=== PATIENT | female | born 1945 | race Caucasian/White ===

== ENCOUNTER → 2017-07-16 | Outpatient (CLI) | payer OTHER | END | disposition home or self-care (01) | LOC: GMAB 16:32 | PROVIDERS: ATTEND Family Medicine | DX: R35.0 Frequency of micturition (principal) ==

== ENCOUNTER → 2017-10-15 | Outpatient (CLI) | payer OTHER | END | disposition home or self-care (01) | LOC: GMAB 11:52 | PROVIDERS: ATTEND Family Medicine | DX: E03.9 Hypothyroidism, unspecified (principal); I10 Essential (primary) hypertension ==

== ENCOUNTER → 2018-11-11 | Outpatient (CLI) | payer OTHER | LOC: GMAE 10:40 | PROVIDERS: ATTEND Family Medicine | DX: E03.9 Hypothyroidism, unspecified (principal) ==

== ENCOUNTER → 2019-07-12 | Outpatient (CLI) | payer OTHER | LOC: YCFC.O 12:19 | PROVIDERS: ATTEND Family Medicine | DX: N39.0 Urinary tract infection, site not specified (principal); I10 Essential (primary) hypertension ==

== ENCOUNTER 2019-07-15 10:17 | Emergency (ER) | payer OTHER ==
[2019-07-15] MEDS ORDERED: ACETAMINOPHEN 500 MG TAB PO ONE (10:36)
--- NOTE | 2019-07-15 10:41 | ED.PDOC ---
History of Present Illness - General Chief Complaint: Problem Time Seen by Provider: 07/15/19 10:21 - History of Present Illness Initial Comments: Patient is a 74F w/ pmh of hypothyroidism and HTN who presents to the ED c/o a flank pain and subjective fevers. Reports symptoms began one week ago when she developed a headache, fevers and low back pain. She was seen by her PCP and dx w/ a UTI and started on ciprofloxacin. Reports being compliant with her medications but continues to have generalize malaise. Reports she does not usually get headaches. Denies a BARNES currently, but primarily feels fatigued. Denies any N/V/D, dysuria or increased frequency. Back pain is primarily her b/l flanks, radiates anteriorly. No aggravating or alleviating factors. Allergies/Adverse Reactions: Allergies Lisinopril Adverse Reaction (Verified 07/15/19 10:45) Cough Home Medications: Ambulatory Orders Levothyroxine Sodium [Synthroid] 0.1 mg PO DAILY 07/15/19 Losartan Potassium & Hydrochlo [Losartan Potassium/Hydroc 100-25 mg] 1 tab PO DAILY 07/15/19 Review of Systems - Review of Systems Constitutional: States: chills, fever EENTM: States: no symptoms reported Respiratory: States: no symptoms reported. Denies: cough, short of breath Cardiology: States: no symptoms reported Gastrointestinal/Abdominal: States: no symptoms reported Genitourinary: Denies: dysuria, frequency Musculoskeletal: States: back pain, muscle stiffness Skin: Denies: lesions, rash Neurological: States: headache. Denies: weakness Endocrine: States: increased thirst. Denies: increased urine Hematologic/Lymphatic: States: no symptoms reported All other Systems: Reviewed and Negative Family Medical History - Family History Mother Living Status: Cause of : CHF Hx Family Congestive Heart Failure: Yes Hx Family Hypertension: Yes Physical Exam - Physical Exam General Appearance: Comfortable Eye Exam: bilateral normal Ears, Nose, Throat: normal ENT inspection, normal pharynx Neck: non-tender, supple Respiratory: chest non-tender, lungs clear Cardiovascular/Chest: normal peripheral pulses, regular rate, rhythm Peripheral Pulses: radial,right: 2+, radial,left: 2+ Gastrointestinal/Abdominal: normal bowel sounds, non tender Rectal Exam: deferred Back Exam: CVA tenderness (R), CVA tenderness (L) Extremity: non-tender, no pedal edema 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 Tabor due to on going malaise, fevers and back pain. Was treated for UTI with cipro, cultures were unfortunately contaminated. Spoke with Dr. Tabor who recommended septic w/u including CT abd/pelvis, CXR, repeat labs. Will also add CT head given her atypical headache. 07/15/19 12:26 CT head IMPRESSION: 1. No hemorrhage, no mass effect, no midline shift. Focal low- density right frontal lobe subcortical white matter without mass effect. 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 Bilateral symmetric periventricular white matter low- density. These are most likely chronic age-related or cerebral microvascular related ischemia. 2. CT scans are insensitive for detecting small CVAs in the first 24 hours after onset. Evaluation of the brain stem is also limited. If symptoms persist, consider NON-EMERGENT MRI scan of the brain with diffusion imaging. 07/15/19 12:32 CT abd/pelvis IMPRESSION: 1. Minimal hepatomegaly but no focal lesions or abnormal density. No ascites. 2. Kidneys ureters and urinary bladder unremarkable with no radiodense stones, signs of obstruction or inflammation. 3. Bowel is negative. Except for mild diverticulosis scattered throughout the colon. No free air or free fluid in the abdomen or pelvis. No inflammatory changes. Electronically signed by: Bhupinder Thompson MD 07/15/2019 12:26 PM CDT 07/15/19 12:40 Spoke with patient's PCP, Dr. Tabor, who recommends keeping the patient on ciprofloxacin and that he will f/u with her. Will D/c. Departure - Departure Clinical Impression: Acute UTI Disposition: Discharge to Home or Self Care Departure Forms: ED Discharge - Pt. Copy, Patient Portal Self Enrollment Instructions: DI for Urinary Tract Infection (UTI) Referrals: Willy Tabor MD [Primary Care Provider] - 1-2 Weeks Home Medications: Ambulatory Orders Levothyroxine Sodium [Synthroid] 0.1 mg PO DAILY 07/15/19 Losartan Potassium & Hydrochlo [Losartan Potassium/Hydroc 100-25 mg] 1 tab PO DAILY 07/15/19
[2019-07-15] MEDS ORDERED: SODIUM CHLORIDE 0.9% 1000ML 1,000 ML IVS ONE (10:51)
[2019-07-15] MEDS ORDERED: POTASSIUM CHLORIDE 20 MEQ TAB PO ONE (11:20)
[2019-07-15] MEDS ORDERED: SODIUM CHLORIDE 0.9% IVPB ONE (11:24)
[2019-07-15] MEDS ORDERED: POTASSIUM CHLORIDE IVPB ONE (11:24)
[2019-07-15] MEDS ORDERED: SODIUM CHLORIDE 0.9% 100ML 100 ML IVPB ONE (11:30)
[2019-07-15] MEDS ORDERED: POTASSIUM CHLORIDE 10mEq 5ML VIAL ONE (11:30)
--- NOTE | 2019-07-15 11:57 | RAD ---
EXAM DESCRIPTION: Chest,2 Views: CR/ CLINICAL HISTORY: 74 years Female fever COMPARISON: CT scan of the head and abdomen and pelvis on this visit. TECHNIQUE: Two views. PA and Lateral. FINDINGS: Lungs: Moderate expansion with no acute infiltrate. Pleural spaces: No effusion or pneumothorax bilaterally. Heart: Mildly enlarged with hypertension configuration. Pulmonary Vascularity: Not increased. Mediastinum: Not widened. Aorta: Unremarkable. Bony Thorax/Spine: No acute bony thoracic abnormalities. Thoracic disc spaces. IMPRESSION: No radiographic evidence of acute cardiopulmonary disease. Mild cardiac enlargement but Shape of heart most likely from hypertension. Electronically signed by: Bhupinder Thompson MD 07/15/2019 11:55 AM CDT
--- NOTE | 2019-07-15 12:11 | CT ---
EXAM DESCRIPTION: Head: Computed Tomography. CLINICAL HISTORY: Atypical Migraine COMPARISON: Chest x-ray and CT scan of abdomen and pelvis on this visit. TECHNIQUE: Non-helical axial scans through the skull and brain, at 2.5 x 20 mm intervals, non-contrast. Coronal and sagittal 2.0 mm reconstructions. Total Exam DLP: 859.97 mGy-cm. This exam was performed according to our departmental dose-optimization program which includes automated exposure control, adjustment of the mA and/or kV according to patient size and/or use of iterative reconstruction technique; to reduce radiation dose to as low as reasonably achievable (ALARA). FINDINGS: No hemorrhage, no mass-effect, and no midline shift. Low-density in the subcortical white matter of the right frontal lobe (axial series 5, image 34-35) as well as minimal low-density in the periventricular white matter of the frontal and parietal lobes symmetric bilaterally. No abnormal radiodense material in the brain parenchyma. Vascular calcifications anterior; physiologic calcifications in the pineal gland and choroid plexus. No effacement or displacement of the ventricles, CSF spaces, or subdural spaces. No extra axial fluid collection or hemorrhage. No gross abnormalities of the bony calvarium. Included paranasal sinuses and mastoid air cells are well - aerated. IMPRESSION: 1. No hemorrhage, no mass effect, no midline shift. Focal low-density right frontal lobe subcortical white matter without mass effect. 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 Bilateral symmetric periventricular white matter low-density. These are most likely chronic age-related or cerebral microvascular related ischemia. 2. CT scans are insensitive for detecting small CVAs in the first 24 hours after onset. Evaluation of the brain stem is also limited. If symptoms persist, consider NON-EMERGENT MRI scan of the brain with diffusion imaging. Electronically signed by: Bhupinder Thompson MD 07/15/2019 12:09 PM CDT
--- NOTE | 2019-07-15 12:28 | CT ---
EXAM DESCRIPTION: Abdomen/Pelvis w/Contrast: Computed Tomography. CLINICAL HISTORY: 74 years Female flank pain, fever COMPARISON: None. TECHNIQUE: Spiral-axial scans at 5 x 5 mm intervals through the abdomen and pelvis, after 50 mL Optiray 320 nonionic IV contrast without oral contrast. (Contrast dose was reduced due to patient renal function). Coronal and sagittal 2.0 mm mm reconstructions. No delayed scans. No adverse reactions. Total Exam DLP: 50 mGy-cm. This exam was performed according to our departmental dose-optimization program which includes automated exposure control, adjustment of the mA and/or kV according to patient size and/or use of iterative reconstruction technique; to reduce radiation dose to as low as reasonably achievable (ALARA). Technically limited study because patient could not raise arms overhead. FINDINGS: Lung bases and pleura: Bibasilar posterior dependent atelectasis. Liver, Stomach, Spleen, Adrenal Glands: Artifact from bone in the bilateral upper extremities next to the abdomen. 19 cm long axis of the right lobe of the liver. No focal lesions. Possible small hiatal hernia. Otherwise stomach and other solid organs are negative. Pancreas, Gallbladder, Ducts: Gallbladder visualized. Prominent common bile duct. Pancreas negative. Kidneys and Ureters: Unremarkable. Mesentery: Negative. Aorta: Minimal atherosclerotic changes. Small periaortic and pericaval lymph nodes. Small Bowel: Minimal fluid and gas with no distended segments. Terminal Ileum/Cecum: Normal caliber. Appendix not seen. No inflammatory changes. Colon: Minimal redundancy of the sigmoid with diverticula. No complications. Minimal fecal material proximally. No air-fluid levels. Pelvic Organs: No free fluid. Urinary bladder nondistended. Vaginal cuff unremarkable. Spine and Bony Pelvis: L5-S1 moderate spondylosis with canal and bilateral foraminal narrowing significant on the left. Minimal spondylosis at T11-T12 and in the included thoracic disc spaces. Left lumbar levoscoliosis. Minimal arthrosis bilateral hip joints. Abdominal Wall/Back Soft Tissues: Minimal diastases at the umbilicus not containing bowel. Bilateral small fatty inguinal hernias not containing bowel. IMPRESSION: 1. Minimal hepatomegaly but no focal lesions or abnormal density. No ascites. 2. Kidneys ureters and urinary bladder unremarkable with no radiodense stones, signs of obstruction or inflammation. 3. Bowel is negative. Except for mild diverticulosis scattered throughout the colon. No free air or free fluid in the abdomen or pelvis. No inflammatory changes. Electronically signed by: Bhupinder Thompson MD 07/15/2019 12:26 PM CDT
[2019-07-15 13:55] VITALS: BP 147/68; TEMP 98.2; O2SAT 97
== END 2019-07-15 13:57 | disposition home or self-care (01) ==
LOC: ER 10:17
DX: N39.0 Urinary tract infection, site not specified (principal); E87.6 Hypokalemia; I10 Essential (primary) hypertension; E03.9 Hypothyroidism, unspecified; Z88.8 Allergy status to other drugs, medicaments and biological substances; Z79.899 Other long term (current) drug therapy
CPT/HCPCS: 70450; 71046; 74177; 80053; 81001; 85025; J3480; J7030; J7050

== ENCOUNTER → 2019-08-09 | Outpatient (CLI) | payer OTHER ==
--- NOTE | 2019-08-09 15:23 | RAD ---
EXAM DESCRIPTION: Knee,Left Complete CLINICAL HISTORY: 74 years Female, KNEE PN TECHNIQUE: 3 views of the left knee were performed. COMPARISON: None available. FINDINGS: The visualized bones appear well mineralized. No acute fracture or dislocation. 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 Small joint effusion. 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 Small joint effusion. Electronically signed by: Natalie Sanchez MD 08/09/2019 3:21 PM CDT
== END ==
LOC: YCFC.O 11:56
PROVIDERS: ATTEND Family Medicine
DX: M17.12 Unilateral primary osteoarthritis, left knee (principal); N39.0 Urinary tract infection, site not specified

== ENCOUNTER → 2019-08-29 | Outpatient (CLI) | payer OTHER ==
--- NOTE | 2019-08-29 12:55 | RAD ---
EXAM DESCRIPTION: Pelvis CLINICAL HISTORY: 74 years Female, PAIN IN LEFT HIP COMPARISON: None. TECHNIQUE: AP radiograph of the pelvis was performed. FINDINGS: The pelvic ring appears grossly intact on this single AP radiograph. No acute fracture or dislocation. Bilateral sacroiliac joints appear normal. Mild bilateral hip osteoarthritis. The visualized lumbo-sacral spine demonstrates mild degenerative changes. IMPRESSION: Single AP radiograph of the pelvis demonstrates grossly intact pelvic ring. Mild bilateral hip osteoarthritis. Electronically signed by: Natalie Sanchez MD 08/29/2019 12:53 PM CDT
== END ==
LOC: RAD 10:00
PROVIDERS: ATTEND Orthopaedic Surgery
DX: M16.0 Bilateral primary osteoarthritis of hip (principal)

== ENCOUNTER → 2019-11-15 | Outpatient (CLI) | payer OTHER | LOC: LAB.O 08:31 | PROVIDERS: ATTEND Family Medicine | DX: I10 Essential (primary) hypertension (principal); E55.9 Vitamin D deficiency, unspecified; E03.9 Hypothyroidism, unspecified; Z13.220 Encounter for screening for lipoid disorders ==

== ENCOUNTER 2020-03-16 09:02 | Observation (INO) | payer OTHER ==
--- NOTE | 2020-03-16 09:12 | ED.PDOC ---
History of Present Illness - General Time Seen by Provider: 03/16/20 09:08 Additional Information: This is a 75-year-old female, with history of hypertension, thyroid disease patient presenting to the ER because of left arm numbness. Patient stated that she woke up in the morning and felt like there was some numbness on the left upper extremity lasted about an hour then it got better on its own. Patient mentioned that yesterday she did not feel well and she did have some chest tightness and palpitations, no chest pain today. Patient denies any fever chills nausea vomiting denies any coughing. Patient lives by herself No blood thinners Patient also admits history of frequent UTIs - History of Present Illness Timing/Duration: other - Woke up with the symptoms Improving Factors: nothing Worsening Factors: nothing Associated Symptoms: chest pain Allergies/Adverse Reactions: Allergies Lisinopril Adverse Reaction (Verified 07/15/19 10:45) Cough Home Medications: Ambulatory Orders Levothyroxine Sodium [Synthroid] 0.1 mg PO DAILY 07/15/19 Losartan Potassium & Hydrochlo [Losartan Potassium/Hydroc 100-25 mg] 1 tab PO DAILY 07/15/19 Meloxicam PO DAILY 03/16/20 Review of Systems - Review of Systems Constitutional: States: no symptoms reported EENTM: States: no symptoms reported Respiratory: States: no symptoms reported Cardiology: States: chest pain Gastrointestinal/Abdominal: States: no symptoms reported Genitourinary: States: no symptoms reported Musculoskeletal: States: no symptoms reported Skin: States: no symptoms reported Endocrine: States: no symptoms reported Hematologic/Lymphatic: States: no symptoms reported Past Medical History (General) - Patient Medical History Hx Stroke: No Hx Congestive Heart Failure: No Hx Hypertension: Yes Hx Thyroid Disease: Yes Hx Diabetes: No Hx MRSA: No - Vaccination History Hx Influenza Vaccination: Yes - 2018 - Social History Hx Tobacco Use: No Hx Alcohol Use: No Hx Substance Use: No Family Medical History - Family History Mother Living Status: Cause of : CHF Hx Family Congestive Heart Failure: Yes Hx Family Hypertension: Yes Physical Exam - Physical Exam General Appearance: Alert, Well Developed, Well Groomed Eye Exam: bilateral normal Ears, Nose, Throat: hearing grossly normal, normal ENT inspection, normal pharynx Neck: non-tender, full range of motion, supple, normal inspection Respiratory: chest non-tender, lungs clear, normal breath sounds, no respiratory distress, no accessory muscle use Cardiovascular/Chest: normal peripheral pulses, regular rate, rhythm, no edema, no gallop, no JVD Peripheral Pulses: radial,right: 2+, radial,left: 2+ Gastrointestinal/Abdominal: normal bowel sounds, non tender, soft, no organomegaly, no pulsatile mass Back Exam: normal inspection, no CVA tenderness, no vertebral tenderness 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 This exam was performed according to our departmental dose- optimization program, which includes automated exposure control, adjustment of the mA and/or kV according to patient size and/or use of iterative reconstruction technique. FINDINGS: The midline structures are not displaced. Sulci are age-appropriate. There are areas of decreased attenuation in the periventricular white matter and the white matter of the centrum semiovale. There is no evidence of mass, mass-effect, hydrocephalus, or acute intracranial hemorrhage. No abnormal extra axial fluid collection is seen. Bone windows show no evidence of depressed skull fracture. Moderate calcifications of the intracranial carotid arteries. The visualized paranasal sinuses are unremarkable. IMPRESSION: 1. Age-appropriate atrophy with evidence of old small vessel ischemic type changes seen. 2. No acute abnormality is seen on noncontrast CT of the head. 75-year-old female, presents to the ER with left arm numbness, she woke up with the symptoms the symptoms lasted about an hour, then she also mentioned that yesterday she did have some palpitations, patient's EKG did not show any acute ischemic changes normal troponin chest x-ray did not show any bilateral pneumonia, head CT was read by radiologist without any intracranial abnormalities. Patient is completely symptomatic has no focal neurological deficits given the fact that she does not have any symptoms at the moment and and she woke up with the numbness that went away on its own, this patient would not be a candidate for TPA will be consulted with the hospitalist for admission for chest pain and TIA - EKG/XRAY/CT Comments: Normal sinus rhythm heart rate of 61, first-degree AV block no acute ischem Departure - Departure Clinical Impression: TIA (transient ischemic attack) Disposition: Discharge to Home or Self Care Referrals: Willy Tabor MD [Primary Care Provider] - 1-2 Weeks Home Medications: Ambulatory Orders Levothyroxine Sodium [Synthroid] 0.1 mg PO DAILY 07/15/19 Losartan Potassium & Hydrochlo [Losartan Potassium/Hydroc 100-25 mg] 1 tab PO DAILY 07/15/19 Meloxicam PO DAILY 03/16/20 Decision To Admit - Decistion To Admit Decision to Admit Reason: Admit from ER Decision to Admit Date: 03/16/20 Decision to Admit Time: 10:04
--- NOTE | 2020-03-16 09:54 | CT ---
EXAM DESCRIPTION: Head CLINICAL HISTORY: numbness COMPARISON: July 15, 2019 TECHNIQUE: Noncontrast transaxial CT images of the head are obtained from base to vertex. This exam was performed according to our departmental dose-optimization program, which includes automated exposure control, adjustment of the mA and/or kV according to patient size and/or use of iterative reconstruction technique. FINDINGS: The midline structures are not displaced. Sulci are age-appropriate. There are areas of decreased attenuation in the periventricular white matter and the white matter of the centrum semiovale. There is no evidence of mass, mass-effect, hydrocephalus, or acute intracranial hemorrhage. No abnormal extra axial fluid collection is seen. Bone windows show no evidence of depressed skull fracture. Moderate calcifications of the intracranial carotid arteries. The visualized paranasal sinuses are unremarkable. IMPRESSION: 1. Age-appropriate atrophy with evidence of old small vessel ischemic type changes seen. 2. No acute abnormality is seen on noncontrast CT of the head. Electronically signed by: Sharif Li MD 03/16/2020 9:52 AM CDT
--- NOTE | 2020-03-16 10:04 | RAD ---
EXAM DESCRIPTION: Chest,1 View CLINICAL HISTORY: chest pain COMPARISON: July 15, 2019 IMPRESSION: Single AP portable upright view of the chest shows cardiac silhouette and pulmonary vasculature to be within normal limits. Lungs are normally aerated and clear. No obvious pleural effusion or pneumothorax is seen. Electronically signed by: Sharif Li MD 03/16/2020 10:02 AM CDT
--- NOTE | 2020-03-16 10:49 | HP ---
SUPERVISING PHYSICIAN: Josue Krishnamurthy MD CHIEF COMPLAINT: Numbness to right fingers. HISTORY OF PRESENT ILLNESS: Ms. Worley is 75 year-old female patient with a history of hypertension and thyroid disease who presented to the Emergency Room with left arm numbness. She endorses that she woke up this morning, seemed like there had been something in her left arm like she had gone asleep in the wrong position but it failed to improve once she got up and moved around. It did resolve after about an hour or hour and a half. She also endorses she felt like she may have been having some chest pain or chest tightness yesterday but none today. She is denying any other complaints. No chills, fever, vomiting, diarrhea or coughing. MRI, carotid Doppler, echocardiogram, were pending. Her CT without contrast failed to show any evidence of acute abnormalities indicating a possible stroke. Given her symptomatology, an EKG was done and showed normal sinus rhythm. Troponin was less than 0.02. Her labs were essentially unremarkable except for a slightly decreased potassium at 3.0 and magnesium at 1.7. She did have a slight left shift on initial CBC but white count was 9,000. Urinalysis showed on microscopic, 3 to 5 WBC with rare bacteria. She does endorse that she has had multiple urinary tract infections over the last several months. Given the question of a TIA and further workup required, the patient is going to be placed in observation for cardiac telemetry, neurological monitoring and further assessment and workup. She was placed in observation in stable condition. PAST MEDICAL HISTORY: 1. Hypertension. 2. Hypothyroidism. PAST SURGICAL HISTORY: 1. Stapedectomy in 1985. 2. Hysterectomy in 1983. 3. Breast biopsy in 1971. CURRENT MEDICATIONS: 1. Meloxicam. 2. Hydrochlorothiazide. 3. Losartan. 4. Synthroid. ALLERGIES: Lisinopril. FAMILY HISTORY: No major medical history. Father at age 89 from advanced age. Mother at age 85 from advanced age. 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 She lives by herself. She has no history of drinking, smoking tobacco or using illicit drugs. REVIEW OF SYSTEMS: CONSTITUTIONAL: Denies any fevers, chills, weakness, general malaise. HEENT: Denies headaches, visual changes, sore throat, nasal congestion. Does have chronic hearing loss. CARDIOVASCULAR: Denies actual chest pain, had some chest tightness yesterday. Denies syncopal episode or palpitations. RESPIRATORY: Denies coughing, wheezing, shortness of breath. GASTROINTESTINAL: Denies nausea or vomiting, diarrhea, constipation or abdominal pain. GENITOURINARY: History of chronic urinary tract infections. She notes she had some mild dysuria but no hematuria or polyuria. MUSCULOSKELETAL: Denies oint swelling or arthralgias. SKIN: Denies rashes, moles, rashes or unexplained changes. NEUROLOGICAL: As noted in history of present illness. Some numbness to left hand involving entire fingers described as more tingling. No reported weakness. No syncopal episodes, no seizures, no ataxia or other neurological deficits. HEMATOLOGIC: Denies easy bruising or unexplained bleeding or transfusion reactions. PHYSICAL EXAMINATION: VITAL SIGNS: Initially in the Emergency Room, temperature of 97.6, pulse 52, blood pressure 172/79, respirations 16, oxygen saturation 99% on room air. Admission weight 84.9 kg. GENERAL: The patient was resting comfortably, did not appear to be in any acute distress. She was well-nourished, well-hydrated. HEENT: Tympanic membranes clear bilaterally. Oropharynx pink, moist without lesions. NECK: Supple, non-tender, full range of motion, no jugular venous distention. CHEST: Lung sounds are clear to auscultation without rhonchi, rales, or wheezes. CARDIOVASCULAR: Regular rate and rhythm without appreciable murmurs, rubs, or gallops. ABDOMEN: Soft, non-tender, positive bowel sounds. BACK: No CVA or vertebral tenderness. EXTREMITIES: Without cyanosis, clubbing, or edema. NEUROLOGIC: Cranial nerves II through XII grossly intact. Upper and lower extremity bilateral strength with no motor drift. [id number] bilateral is normal. Facial features were symmetrical. Extraocular movements within normal limits. No nystagmus and she was alert and oriented x 3. Skin was warm, pink and dry. LABORATORY: White count 9,000, hemoglobin 12.5, hematocrit 37.3, platelet count 286,000. Differential does show a slight left shift. Chemistries showed a mild potassium at 3.0, other electrolytes within normal limits. BUN 26, creatinine 1.08, calcium 9.7, magnesium 1.7. Liver functions within normal limits. TSH normal at 0.92, troponin less than 0.02. Urinalysis showed a small leukoesterase, WBCs 3 to 5, RBCs, epithelials 5 to 10 and rare bacteria. MICROBIOLOGY: Urine culture pending. RADIOLOGY: Chest x-ray without any abnormal findings per radiology interpretation. CT of the head without contrast, no acute findings. Brain MRI, carotid MRI and echocardiogram were pending. ASSESSMENT: 1. Possible TIA with reported left hand numbness that resolved prior to being seen in the Emergency Room with no history of previous stroke, no placed on aspirin or anti-lipid medications. 2. Hypertension, showing to be stable. 3. Hypothyroidism on supplementation with normal TSH. 4. Urinary tract infection with history of chronic urinary tract infections treated within the last 2 months, on Cipro with cultures pending. PLAN: The patient is going to be placed in observation for continued workup for possible TIA. MRI, carotid and echocardiogram ordered bu pending. She will be on neurological checks as per protocol. I will start her on aspirin and Lipitor as well as check a lipid panel in the morning. I started her on Rocephin and cultures pending, for the empiric coverage of the urinary tract infection. Will also have her on DVT prophylaxis with Lovenox. I anticipate her length of stay to be one to two days. More likely she will discharge tomorrow should she show to be clinically stable. Until then we will continue to monitor and treat as needed. Once discharged, she will certainly need followup with Dr. Tabor for further cardiology workup and neurological management. #[id number] [facility]
--- NOTE | 2020-03-16 12:00 | US ---
EXAM DESCRIPTION: Carotid Duplex CLINICAL HISTORY: 75 years Female, Possible TIA COMPARISON: None. TECHNIQUE: Carotid Doppler ultrasound was performed bilaterally. FINDINGS: Mild atherosclerotic disease is noted in the bilateral carotid bulb and internal carotid artery. Peak systolic velocities are 53.1 cm/s, 69.6 cm/s and 77.6 cm/s in the proximal, mid and distal portions of the right internal carotid artery. Peak systolic velocities are 46 cm/s, 57.4 cm/s and 70 cm/s in the proximal, mid and distal portions of the left internal carotid artery. ICA to CCA ratio is 1.1 on the right and 0.8 on the left. Antegrade flow is noted in the bilateral vertebral arteries. IMPRESSION: No hemodynamically significant stenosis is noted in the bilateral carotid arteries. Electronically signed by: Natalie Sanchez MD 03/16/2020 11:59 AM CDT
--- NOTE | 2020-03-16 12:29 | MRI ---
EXAM DESCRIPTION: Brain w/oContrast CLINICAL HISTORY: Possible TIA COMPARISON: CT head earlier same day March 16, 2020 TECHNIQUE: Non contrast MRI of the brain is performed according to our usual protocol including multiplanar multi sequence technique. FINDINGS: Sagittal T1 images show intact corpus callosum. Normal pituitary gland with normal T1 appearance of the jamie and medulla and upper cervical cord. Normal signal intensity within the clivus and calvarium. Axial T2 fat sat images reveal preservation of intracranial vascular flow voids. Normal griffin matter T2 signal intensity. Scattered white matter hyperintensities. Normal ventricles with normal gyral and sulcal fold pattern. The globes appear intact and symmetrical. No abnormal fluid signal in the paranasal sinuses, tympanic cavities or mastoid air cells. Axial flair images show multiple small foci of increased signal intensity in the subcortical and central white matter both cerebral hemispheres consistent with chronic microvascular ischemic changes from aging, diabetes or hypertension. Diffusion weighted images are negative for focal intense increased signal intensity in the brain parenchyma to suggest restricted diffusion. ADC mapping is negative. Axial T1 images show normal griffin-white matter differentiation. No high signal intensity hemorrhagic lesion of the brain parenchyma. No subdural hematoma. Coronal susceptibility weighted images are negative for focal signal loss to suggest abnormal brain parenchymal calcification or hemosiderin deposition. IMPRESSION: Chronic microvascular ischemic changes in the cerebral white matter. No acute intracranial pathologic process. Electronically signed by: Moe Steven MD 03/16/2020 12:27 PM CDT
[2020-03-16] MEDS ORDERED: SODIUM CHLORIDE 0.9% (FLUSH) 10 ML SYG IV PRN (12:37)
[2020-03-16] MEDS ORDERED: IV SET AND CAP CHANGE INJ INJ SCH (13:00)
[2020-03-16] MEDS ORDERED: cefTRIAXone SODIUM 1 GM VIAL ONE (14:23)
[2020-03-16] MEDS ORDERED: SODIUM CHL 0.9% 50ML MIN-BAG+ 50 ML IVPB ONE (14:23)
[2020-03-16] MEDS: ASPIRIN (CHEWABLE) 81 MG TAB PO SCH (14:25)
[2020-03-16] MEDS ORDERED: cefTRIAXone SODIUM 1 GM in SODIUM CHL 0.9% 50ML MIN-BAG+ 50 ML IVPB SCH (14:30)
[2020-03-16] MEDS ORDERED: POTASSIUM CHLORIDE 20 MEQ TAB PO ONE (15:22)
[2020-03-16] MEDS ORDERED: MAGNESIUM SULFATE PREMIX 2GM 2 GM in PREMIX BAG 1 BAG IVPB ONE (15:23)
[2020-03-16] MEDS ORDERED: MAGNESIUM SULFATE PREMIX 2GM 50 ML IVPB ONE (15:51)
[2020-03-17] MEDS: ASPIRIN (CHEWABLE) 81 MG TAB PO SCH (09:27)
[2020-03-17 10:26] VITALS: BP 144/77; TEMP 97.9
[2020-03-17 12:08] VITALS: O2SAT 96
--- NOTE | 2020-03-19 11:00 | DS ---
SUPERVISING PHYSICIAN: Edith Krishnamurthy MD ADMISSION DIAGNOSIS: 1. Possible TIA with reported left hand numbness that resolved prior to being seen in the Emergency Room with no history of previous stroke, now placed on aspirin or anti-lipid medications. 2. Hypertension, showing to be stable. 3. Hypothyroidism on supplementation with normal TSH. 4. Urinary tract infection with history of chronic urinary tract infections treated within the last 2 months, on Cipro with cultures pending. DISCHARGE DIAGNOSIS: 1. Possible cerebrovascular accident with the patient having no previous history of strokes, not currently on aspirin or statin at time of event. Discharged with both aspirin and statin and no recurrence of any symptoms. 2. Urinary tract infection with cultures pending. The patient was discharged on Cipro. 3. Hypertension, stable. 4. Hypothyroidism on supplementation with normal TSH. REASON FOR HOSPITALIZATION: Ms. Worley is 75 year-old female patient with a history of hypertension and thyroid disease who presented to the Emergency Room with left arm numbness. She endorses that she woke up this morning, seemed like there had been something in her left arm like she had gone asleep in the wrong position but it failed to improve once she got up and moved around. It did resolve after about an hour or hour and a half. She also endorses she felt like she may have been having some chest pain or chest tightness yesterday but none today. She is denying any other complaints. No chills, fever, vomiting, diarrhea or coughing. MRI, carotid Doppler, echocardiogram, were pending. Her CT without contrast failed to show any evidence of acute abnormalities indicating a possible stroke. Given her symptomatology, an EKG was done and showed normal sinus rhythm. Troponin was less than 0.02. Her labs were essentially unremarkable except for a slightly decreased potassium at 3.0 and magnesium at 1.7. She did have a slight left shift on initial CBC but white count was 9,000. Urinalysis showed on microscopic, 3 to 5 WBC with rare bacteria. She does endorse that she has had multiple urinary tract infections over the last several months. Given the question of a TIA and further workup required, the patient is going to be placed in observation for cardiac telemetry, neurological monitoring and further assessment and workup. She was placed in observation in stable condition. LABORATORY: CBC showed white count 9,000, hemoglobin 12.5, hematocrit 37.3, platelet count 286,000. Differential did show a slight left shift. Chemistries showed a mildly low potassium of 3.0, BUN 26, normal creatinine of 1. Magnesium low at 2.7. Liver functions all within normal limits. Troponin less than 0.02. Lipid panel within normal limits. TSH 0.92. Urinalysis did show mild leukocyte esterase, 0 RBCs, 3 to 5 WBCs, 5 to 10 epithelial, rare bacteria. MICROBIOLOGY: Final urine culture result showed urogenital brandy present, not common pathogens. RADIOLOGY: 12-lead EKG showed a sinus rhythm with no ST or T-wave changes. It did show a first degree AV block. She had a chest x-ray with no acute findings. CT of the head showed no acute findings per radiologic interpretation, just age-appropriate atrophy with some evidence of old small vessel ischemic type changes seen. MRI of the brain per radiologic interpretation showed chronic microvascular ischemic changes in the cerebral white matter, no acute intracranial pathologic process. Carotid artery studies showed no significant stenosis per radiologic interpretation. Echocardiogram showed normal ejection fraction with no mention of any ventricular thromboses or other abnormalities. Please see that report for details with final report pending at discharge. HOSPITAL COURSE: Ms. Escalante was admitted for further workup with questionable transient ischemic attack. Initially, vital signs on admission showed she was just mildly hypertensive with blood pressure 172,79, respirations 16, saturation 99% on room air, heart rate 66, afebrile with temperature 97.6. She was placed on cardiac telemetry and had neuro checks per protocol. She has no additional findings and no recurrence of symptoms. She was noted to have questionable urinary tract infection and was treated with that initially with Rocephin and discharged with Cipro. Given the fact that she was not on an aspirin and a statin, those were both started while she was in the hospital. There was no change in neurological status indicating acute changes. It was felt she was stable and could continue with outpatient management. DISCHARGE ASSESSMENT: VITAL SIGNS: Temperature 97.9. Pulse 70. Blood pressure 144/77. Respirations 16. Saturation 95% on room air. GENERAL: The patient was resting comfortably and did not appear to be in any acute distress. She is alert. CHEST: Clear to auscultation. HEART: Regular rate and rhythm. ABDOMEN: Soft, nontender. Positive bowel sounds. EXTREMITIES: Without edema. NEUROLOGIC: Alert and oriented x3 with no reported paresthesias or neurovascular changes. Facial features were symmetrical. Extraocular movements within normal limits. Cranial nerves II-XII are grossly intact. SKIN: Warm, pink and dry. PLAN: Ms. Worley was discharged with instructions for treatment of urinary tract infection with Cipro with cultures pending although it came back with normal brandy, but she has been treated in the past for multiple events regarding bladder infections. She is to resume her regular medications as prior to hospitalization and was started on aspirin and a statin, although she could not tolerate Lipitor in the past, but she was started on Pravachol. She was given instructions to return to the Emergency Room if she had any concerning symptoms. Diet was low-fat diet with low cholesterol. She was to increase her activity as tolerated. She was to call Dr. Tabor's office on Thursday to establish an appointment for followup in one week. MEDICATIONS AT DISCHARGE: 1. Aspirin 81 mg daily, #30, no refills. 2. Ciprofloxacin 25 mg q.12h., #10, no refills. 3. Pravachol 40 mg, #30, no refills. All other medications prior to hospitalization were continued. CONDITION ON DISCHARGE: Stable and improved. DISPOSITION: The patient was discharged home. #[id number] [facility]
== END 2020-03-17 12:30 | disposition home or self-care (01) ==
LOC: ER 09:02 → MS 10:24
PROVIDERS: ADMIT Nurse Practitioner Family; ATTEND Nurse Practitioner Family
DX: N39.0 Urinary tract infection, site not specified (principal); E83.42 Hypomagnesemia; E87.6 Hypokalemia; R20.0 Anesthesia of skin; I10 Essential (primary) hypertension; E03.9 Hypothyroidism, unspecified; R07.89 Other chest pain; R00.2 Palpitations; I44.0 Atrioventricular block, first degree; Z79.1 Long term (current) use of non-steroidal anti-inflammatories (NSAID); Z79.890 Hormone replacement therapy; Z79.899 Other long term (current) drug therapy; Z88.8 Allergy status to other drugs, medicaments and biological substances; Z87.440 Personal history of urinary (tract) infections; Z60.2 Problems related to living alone
CPT/HCPCS: 96365; 96375; J0696; J3475; J7050; 80053; 87086; 80061; 36415 ×2; 81001; 85025; 83735; 84443; 84484; 71045; 70450; 93880; 94760 ×7; 97116; 97162; 99285; 93306; 70551; 93005; G0378

== ENCOUNTER → 2020-05-15 | Outpatient (CLI) | payer OTHER | LOC: YCFC.O 12:52 | PROVIDERS: ATTEND Family Medicine | DX: N39.0 Urinary tract infection, site not specified (principal) ==

== ENCOUNTER → 2020-05-30 | Outpatient (CLI) | payer OTHER ==
--- NOTE | 2020-05-31 14:11 | MRI ---
EXAM DESCRIPTION: Lumbar Spine w/o Contrast : Magnetic Resonance Imaging. CLINICAL HISTORY: RADICULOPATHY LUMBAR REGION COMPARISON: MRI scan lumbar spine June 2009. TECHNIQUE: Multiplanar, multiple standard sequences, non contrast MRI, lumbar spine. FINDINGS: L5-S1: The disc is well visualized on axial T2 series 501, image 3. Again noted is disc desiccation with moderate endplate reactive changes to the left of midline with disc space loss and disc osteophyte complex encroaching on the left foramen with stenosis and compromise left L5 nerve. Stable since the prior study. Hypertrophic degeneration of the facet joints and flavum ligaments (canal elements). Mild left paracentral canal narrowing. 3 mm grade 1 retrolisthesis of posterior midline disc bulge. Disc and osteophytes are also effacing the left subarticular recess abutting the descending left S1 nerve. This has progressed since the prior study. Moderate narrowing of the right foramen. L4-L5: Disc desiccation with anterior disc space loss and moderate endplate reactive changes anterior and laterally to the right of midline. Trace anterolisthesis. Posterior left and lateral disc bulge encroaching on the foramen and abutting the left L4 nerve. Also effacing the left subarticular recess abutting the left L5 nerve. Disc spur complex encroaching on the right foramen and the right L4 nerve. Bilateral progression since the prior study. Hypertrophic changes in the canal elements, more on the left. AP canal diameter 9 mm which is stable. L3-L4: Disc desiccation with preserved disc space. Mild to moderate hypertrophic changes in the canal elements impressing on the lateral thecal sac. AP canal diameter 10 mm. Minimal progression since the prior study. Bilateral mild foraminal narrowing, more on the right. L2-L3: Disc desiccation and minimal disc space loss. Posterior broad-based disc bulge and minimal bulge into the left foramen. Hypertrophic changes of the posterior elements impressing on the lateral thecal sac. AP canal diameter 9 mm. This has progressed slightly since the prior study. Mild left foraminal narrowing and right foramen patent. L1-L2: Disc desiccation and minimal disc space loss. Posterior broad-based bulge. Hypertrophic changes in the canal elements impressing on the lateral thecal sac. AP canal diameter 12 mm. Mild left foraminal narrowing. This has progressed since the prior study. T12-L1: Disc desiccation and anterior bulge. Trace anterolisthesis. Trace hypertrophic changes in the canal elements. AP canal diameter 13 mm. Bilateral foramina are patent. Conus terminates just above the disc space. Minimal disc space loss and disc bulging since the prior study. L2-L4 levoscoliosis. Well-circumscribed T1 and T2 hemangiomas in the L3 and L5 vertebral bodies. Stable since the prior study. Paravertebral soft tissues with muscle atrophy.. Distal cord normal signal and caliber. Inhomogeneous marrow signal in the remaining vertebral bodies and the posterior elements. Vertebral bodies are not compressed at any level. IMPRESSION: 1. Multiple levels with desiccated and bulging discs, endplate spondylosis, and hypertrophic changes in the facet joints and posterior ligaments. Overall has progressed since the prior study in 2008. 2. Stable spondylosis and disc bulging on the left at L5-S1 with left foraminal stenosis and compromise left L5 nerve. Progressive posterior midline and left paracentral disc and spur bulge encroaching on the thecal sac and effacing the left subarticular recess with impingement of the left S1 nerve since the prior study. 3. Disc spur complex at L4-L5 encroaching on the right foramen and right L4 nerve. Disc spur complex encroaching on the left foramen and the left subarticular recesses encroaching on the left L4 and left L5 nerve. This has progressed since the prior study. Stable mild central canal stenosis. 4. Mild canal stenosis at L2-L3 has progressed since the prior study. Please see above FINDINGS for changes at other levels. Electronically signed by: Bhupinder Thompson MD 05/31/2020 2:09 PM CDT
== END ==
LOC: MRI 11:00
PROVIDERS: ATTEND Family Medicine
DX: M54.16 Radiculopathy, lumbar region (principal); M51.36 Other intervertebral disc degeneration, lumbar region; M51.86 Other intervertebral disc disorders, lumbar region; M51.87 Other intervertebral disc disorders, lumbosacral region; M46.96 Unspecified inflammatory spondylopathy, lumbar region; M47.897 Other spondylosis, lumbosacral region; M48.062 Spinal stenosis, lumbar region with neurogenic claudication; M48.07 Spinal stenosis, lumbosacral region; M24.28 Disorder of ligament, vertebrae; M25.78 Osteophyte, vertebrae

== ENCOUNTER 2020-10-03 18:19 | Emergency (ER) | payer OTHER ==
[2020-10-03 18:43] VITALS: BP 155/82; TEMP 97.4; O2SAT 99
[2020-10-03] MEDS ORDERED: SULFA/TRIMETH 800/160 (DS) TAB 1 EA TAB PO ONE (18:43)
--- NOTE | 2020-10-03 18:45 | ED.PDOC ---
History of Present Illness - General Chief Complaint: Skin/Abrasion/Tear Stated Complaint: right leg bleeding Time Seen by Provider: 10/03/20 18:21 Source: patient Exam Limitations: no limitations - History of Present Illness Initial Comments: The patient is a 75-year-old female presented emergency room secondary to a cut on her right lower leg laterally that has continued to bleed throughout the day. The patient was shaving her legs when she apparently nicked a bulged varicose vein. She applied pressure this morning but throughout the day it is continued to ooze. Laceration is only about 2 mm in length. It is only very slightly oozing at this point. Estimated blood loss throughout the day according to her description is probably 15 cc. Timing/Duration: other - 14 hours Severity: mild Improving Factors: nothing Worsening Factors: nothing Associated Symptoms: denies symptoms Allergies/Adverse Reactions: Allergies Lisinopril Adverse Reaction (Verified 07/15/19 10:45) Cough Home Medications: Ambulatory Orders Levothyroxine Sodium [Synthroid] 0.1 mg PO DAILY 07/15/19 Losartan Potassium & Hydrochlo [Losartan Potassium/Hydroc 100-25 mg] 1 tab PO DAILY 07/15/19 Meloxicam PO DAILY 03/16/20 Aspirin [Korina Low Dose] 81 mg PO DAILY #30 tab 03/17/20 Ciprofloxacin [Cipro] 250 mg PO Q12H #10 tablet 03/17/20 Pravastatin Sodium [Pravachol] 40 mg PO DAILY #30 tab 03/17/20 Review of Systems - Review of Systems Constitutional: States: no symptoms reported EENTM: States: no symptoms reported Respiratory: States: no symptoms reported Cardiology: States: no symptoms reported Gastrointestinal/Abdominal: States: no symptoms reported Genitourinary: States: no symptoms reported Musculoskeletal: States: no symptoms reported Skin: States: see HPI Neurological: States: no symptoms reported Endocrine: States: no symptoms reported All other Systems: No Change from Baseline Past Medical History (General) - Patient Medical History Hx Seizures: No Hx Stroke: No Hx Asthma: No Hx of COPD: No Hx Cardiac Disorders: No Hx Congestive Heart Failure: No Hx Pacemaker: No Hx Hypertension: Yes Hx Thyroid Disease: Yes Hx Diabetes: No Hx Gastroesophageal Reflux: No Hx Cancer: No Hx Hepatitis C: No Hx MRSA: No - Vaccination History Hx Influenza Vaccination: Yes - 2018 Hx Pneumococcal Vaccination: Yes - Social History Hx Tobacco Use: No Hx Alcohol Use: No Hx Substance Use: No Hx Physical Abuse: No Hx Emotional Abuse: No Family Medical History - Family History Mother Living Status: Cause of : CHF Hx Family Congestive Heart Failure: Yes Hx Family Hypertension: Yes Physical Exam - Physical Exam General Appearance: Alert, Comfortable, No apparent distress Eye Exam: bilateral normal Ears, Nose, Throat: hearing grossly normal Neck: full range of motion Respiratory: no respiratory distress, no accessory muscle use Cardiovascular/Chest: normal peripheral pulses, no edema Peripheral Pulses: dorsalis pedis,right: 2+, dorsalis pedis,left: 2+ Rectal Exam: deferred Extremity: normal range of motion, non-tender, no pedal edema, normal capillary refill Neurologic: tailer out II-XII nml as tested, alert, normal mood/affect, oriented x 3 Skin Exam: normal color - Multiple varicose veins to the lower extremities. Laceration as above. Comments: Vital Signs - 24 hr 10/03/20 18:30 Temperature 97.4 F L Pulse Rate [ 67 left brachial] Respiratory 20 Rate Blood Pressure 155/82 [left brachial] O2 Sat by Pulse 99 Oximetry Progress - Progress Progress: 10/03/20 18:44 The patient is a 75 female presented emergency room secondary to a small 2 mm laceration to the right lower extremity that is continued to bleed throughout the day likely secondary to being over a varicose vein. The wound was cleaned with alcohol and Dermabond was used to seal over the wound. She was given 1 dose of Bactrim to prevent infection. ER warnings are given. Keep routine follow-up with primary care doctor. [email or web address] [phone] Departure - Departure Clinical Impression: Accidental laceration Disposition: Discharge to Home or Self Care Condition: Fair Departure Forms: ED Discharge - Pt. Copy, Patient Portal Self Enrollment Diet: regular diet Activity: increase activity as tolerated Referrals: Willy Tabor MD [Primary Care Provider] - 1-2 Weeks Home Medications: Ambulatory Orders Levothyroxine Sodium [Synthroid] 0.1 mg PO DAILY 07/15/19 Losartan Potassium & Hydrochlo [Losartan Potassium/Hydroc 100-25 mg] 1 tab PO DAILY 07/15/19 Meloxicam PO DAILY 03/16/20 Aspirin [Korina Low Dose] 81 mg PO DAILY #30 tab 03/17/20 Ciprofloxacin [Cipro] 250 mg PO Q12H #10 tablet 03/17/20 Pravastatin Sodium [Pravachol] 40 mg PO DAILY #30 tab 03/17/20 Additional Instructions: The patient is a 75 female presented emergency room secondary to a small 2 mm laceration to the right lower extremity that is continued to bleed throughout the day likely secondary to being over a varicose vein. The wound was cleaned with alcohol and Dermabond was used to seal over the wound. She was given 1 dose of Bactrim to prevent infection. ER warnings are given. Keep routine follow-up with primary care doctor.
== END 2020-10-03 18:54 | disposition home or self-care (01) ==
LOC: ER 18:19
DX: S81.811A Laceration without foreign body, right lower leg, initial encounter (principal); I83.891 Varicose veins of right lower extremity with other complications; E07.9 Disorder of thyroid, unspecified; I10 Essential (primary) hypertension; W26.8XXA Contact with other sharp object(s), not elsewhere classified, initial encounter; Y93.E8 Activity, other personal hygiene; Z79.82 Long term (current) use of aspirin; Z79.899 Other long term (current) drug therapy; Z88.8 Allergy status to other drugs, medicaments and biological substances; Y92.9 Unspecified place or not applicable